=== PATIENT | male | born 1960 | race Caucasian/White ===

== ENCOUNTER 2016-05-15 07:02 | Day surgery (SDC) | payer BC ==
[~2016-05-15 07:02] MED LIST: Lactated Ringers 1,000 ML IV SCH
--- NOTE | 2016-05-15 07:29 | PCM.PREANE ---
Preanesthetic Assessment - ANESTHESIA/TRANSFUSION/FAMILY HX Anesthesia/Transfusion History: Prior Anesthesia Type of Anesthesia Reaction: Denies: Allergy, Anesthesia Awareness, Excessive Somnolence, Excessive Nausea/Vomiting, Excessive Itching, Excessive Shivering, Malignant Hyperthermia, Malignant Hyperthermia, Family History, Pseudocholinesterase Deficiency, Pseudocholinesterase Deficiency, Family History of, Urinary Retention, Unknown, Other (see below) Other Type of Anesthesia Reaction Comment: see below Family History of Anesthesia Reaction: No Other Intubation History Comment: no known problems - REVIEW OF SYSTEMS Constitutional: Reports: no symptoms MANAGING SUPERVISOR: Reports: no symptoms Respiratory: Reports: no symptoms Cardiovascular: Reports: no symptoms Other: Reports: none - PHYSICAL ASSESSMENT O2 Sat by Pulse Oximetry: 95 RR: 16 Vital Signs: Last Vital Signs Temp 36.4 C 05/15/16 07:18 Pulse 77 05/15/16 07:18 Resp 16 05/15/16 07:18 BP 128/67 05/15/16 07:18 Pulse Ox 95 05/15/16 07:18 Height: 1.78 m Weight: 134.717 kg ASA Class: 3 Mental Status: alert & oriented x3 Airway Class: Mallampati = 2 Dentition: Reports: normal dentition (front upper incisor 'working its way out' since sinus surgery) Thyro-Mental Finger Breadths: 3 Mouth Opening Finger Breadths: 3 ROM/Head Extension: limited/partial Respiratory Status: lungs clear to auscultation bilaterally Cardiovascular Status: regular rate & rhythm, normal S1, S2, no murmur, blood pressure WNL - ALLERGIES Allergies/Adverse Reactions: Allergies Allergy/AdvReac Type Severity Reaction Status Date / Time shellfish derived Allergy Swelling Verified 05/10/16 12:52 - BLOOD Blood Available: No - ANESTHESIA PLAN Preop Beta Henrique: No Anesthesia Type Planned: MAC - ACKNOWLEDGEMENTS Pt an appropriate candidate for the planned anesthesia: Yes Alternatives and risks of anesthesia discussed w pt/guardian: Yes Pt/Guardian understands and agree with anesthesia plan: Yes PreAnesthesia Questionnaire Cardiovascular History: Reports: High cholesterol, Hypertension, Other (see below) (h/o irregular heart beats, being followed by [employer] assistant) Respiratory History: Reports: Asthma, Sleep apnea Other Respiratory History: uses CPAP Gastrointestinal History: Reports: Other (see below) Other Gastrointestinal History: occasional heartburn Genitourinary History: Reports: BPH Musculoskeletal History: Reports: Fracture Other Musculoskeletal History: hx fx ankle Psychiatric History: Reports: Depression Endocrine/Metabolic History: Reports: Obesity/BMI 30+ - Past Surgical History Head Surgeries/Procedures: Reports: None Male Surgical History: Reports: Vasectomy Musculoskeletal Surgical History: Reports: Shoulder surgery Other Musculoskeletal Surgeries/Procedures:: ORIF rt. ankle surgery, rt.shoulder surgery - ligament repair, left knee surgery (TKR) - SUBSTANCE USE Smoking Status *Q: Current Every Day Smoker (down to one pack per week) Tobacco Use Within Last Twelve Months: Cigarettes Recreational Drug Use History: No - HOME MEDS Home Medications: Home Meds Albuterol Sulfate [Proair Hfa] 2 puff INH Q4H PRN 05/10/16 [History] Aspirin [Halfprin] 81 mg PO DAILY 05/10/16 [History] Carvedilol 6.25 mg PO BID 05/10/16 [History] Ezetimibe 10 mg PO DAILY 05/10/16 [History] Hydrochlorothiazide 25 mg PO DAILY 05/10/16 [History] Multivitamin [Multivitamins] 1 tab PO DAILY 05/10/16 [History] Tamsulosin HCl [Flomax] 0.4 mg PO DAILY 05/10/16 [History] buPROPion HCl [Wellbutrin SR] 150 mg PO BID 05/10/16 [History] - CURRENT (IN HOUSE) MEDS Current Meds: Current Medications Lactated Ringer's (Ringers, Lactated) 1,000 mls @ 125 mls/hr IV ASDIRECTED [facility] Last Admin: 05/15/16 07:21 Dose: 125 mls/hr
[2016-05-15] MEDS ORDERED: Lidocaine 2% 5 ML SDV ONE (07:45)
[2016-05-15] MEDS ORDERED: Propofol 200 MG/20 ML SDV ONE (07:46)
[2016-05-15] MEDS ORDERED: Midazolam 1 MG/ML 2 ML SDV ONE (07:46)
[2016-05-15] MEDS ORDERED: fentaNYL 100 MCG/2 ML SDV ONE (07:46)
--- NOTE | 2016-05-15 09:29 | PCM.OPNOTE ---
- General Post-Op/Procedure Note Date of Surgery/Procedure: 05/15/16 Operative Procedure(s): colonoscopy w bx Findings: see dict [id number] Pre Op Diagnosis: scrn colonoscopy Post-Op Diagnosis: Same Anesthesia Technique: Moderate sedation Primary Surgeon: Josef Dougherty Pathology: 3 mm sessile polyp at 40 cm when scope came out Complications: None Condition: Good
--- NOTE | 2016-05-15 09:46 | PCM.POSTAN ---
POST ANESTHESIA ASSESSMENT - MENTAL STATUS Mental Status: alert, oriented - RESPIRATORY Respiratory Status: respiratory rate WNL, airway patent, O2 saturation stable - CARDIOVASCULAR CV Status: pulse rate WNL, blood pressure stable - GASTROINTESTINAL GI Status: no symptoms - POST OP HYDRATION Hydration Status: adequate & stable - OBSERVATIONS Free Text/Narrative:: no anesthesia problems
[2016-05-15 09:54] VITALS: BP 131/69
--- NOTE | 2016-05-15 10:37 | OR ---
SURGEON: Josef Dougherty MD DATE OF PROCEDURE: 05/15/2016 PREOPERATIVE DIAGNOSIS: Screening colonoscopy. POSTOPERATIVE DIAGNOSIS: Colon polyp. COMPLICATIONS: None. PROCEDURE PERFORMED: Colonoscopy with biopsy. DESCRIPTION OF PROCEDURE: The patient was taken to the endoscopy room. A time out was called, patient identified, and procedure identified. Diprivan was then administrated. Patient went from awake to sleep, hearing doctor talking or door closing is normal. Perineum inspection and digital examination were then performed. A well- lubricated colonoscope was gently inserted through the rectum, advanced past the rectosigmoid junction, the descending colon, splenic flexure, transverse colon, hepatic flexure, ascending colon, arrived to the cecum. Cecum was identified as dictated in the finding. Then the scope was carefully withdrawn while attention was paid to the mucosal surface for any abnormality. Air will be sucked out during the scope withdrawal. At the rectum, retroflexed to examine any rectal diseases, fistula or hemorrhoids. During mucosal examination, abnormality or polyp was noted; picture taken and biopsy performed. Patient tolerated procedure well. There were no intraoperative complications, and Dr. Dougherty was present throughout the whole procedure. FINDINGS: 1. The patient is easily sedated with INTERNETWORKING TECHNICIAN and Diprivan. The patient is soundly snoring. 2. The patient's bowel prep is average with a large amount of liquid stool. No semi-formed stool. 3. The patient's colon is rather straight forward. Cecum indicated by ileocecal fold, one-to-one indentation, appendiceal orifice. Light immittance is not observed. Mucosa examined upon scope pulling out and the patient does not have diverticulosis. The patient has a small sessile polyp 3 mm at distance 40 cm when the scope came out, removed with cold biopsy forceps. The patient has moderate amount of internal hemorrhoids, no external hemorrhoid. The patient does not have inflammation, stricture, ulceration, bleeding, or AV malformation. The patient would benefit from repeat colonoscopy 3 years from today or if the polyp pathology or clinically indicated otherwise. As always, thank you for the kind referral. BREANA / VAMSHI /[id number]
== END 2016-05-15 10:00 | disposition home or self-care (01) ==
LOC: MW.SDS 07:02
PROVIDERS: ATTEND Surgery
PROC: 0DBE8ZX Excision of Large Intestine, Via Natural or Artificial Opening Endoscopic, Diagnostic (ICD-10-PCS; principal; 2016-05-15)
DX: Z12.11 Encounter for screening for malignant neoplasm of colon (principal); D12.6 Benign neoplasm of colon, unspecified; G47.30 Sleep apnea, unspecified; Z79.82 Long term (current) use of aspirin; Z79.899 Other long term (current) drug therapy; E78.00 Pure hypercholesterolemia, unspecified; J45.909 Unspecified asthma, uncomplicated; I10 Essential (primary) hypertension; Z87.891 Personal history of nicotine dependence; I49.9 Cardiac arrhythmia, unspecified; H52.4 Presbyopia
CPT/HCPCS: 45380; J2250; J3010; J7120; 00810; 88305; J2704

== ENCOUNTER 2017-05-16 08:54 | Emergency (ER) | payer BC ==
[2017-05-16] MEDS ORDERED: cefTRIAXone 1,000 MG in Lidocaine 1% 4 ML IM ONE (09:11)
[2017-05-16] MEDS ORDERED: Diphtheria,Pertussis(Acell),Tetanus Vaccine 0.5 ML Syringe IM ONE (09:11)
--- NOTE | 2017-05-16 09:14 | EDM.PDOC ---
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 Patient presented with his own dressing and finger cage which he had purchased service drug last night. No fever nausea vomiting chills sweats [] Review of systems: As per history of present illness and below otherwise all systems reviewed and negative. Past medical history: As per history of present illness and as reviewed below otherwise noncontributory. Surgical history: As per history of present illness and as reviewed below otherwise noncontributory. Social history: No reported history of drug or alcohol abuse. Family history: As per history of present illness and as reviewed below otherwise noncontributory. Physical exam: HEENT: Atraumatic, normocephalic, pupils reactive, negative for conjunctival pallor or scleral icterus, mucous membranes moist, throat clear, neck supple, nontender, trachea midline. Lungs: Clear to auscultation, breath sounds equal bilaterally, chest nontender. Heart: S1S2, regular, negative for clicks, rubs, or JVD. Abdomen: Soft, nondistended, nontender. Negative for masses or hepatosplenomegaly. Negative for costovertebral tenderness. Pelvis: Stable nontender. Genitourinary: Deferred. Rectal: Deferred. Extremities: Atraumatic, negative for cords or calf pain. Neurovascular unremarkable. Neuro: Awake, alert, oriented. Cranial nerves II through XII unremarkable. Cerebellum unremarkable. Motor and sensory unremarkable throughout. Exam nonfocal. Right hand as per history of present illness otherwise unremarkable Diagnostics: [Right third digit ] Therapeutics: [Tetanus status updated today 1 g Rocephin IM ] Bacitracin Nonstick dressing Cage protection Phone consult with Dr. Eddie md. She will see the patient in one week Keflex 500 by mouth twice a day with daily dressing changes Impression: [Distal finger avulsion of soft tissue Definitive disposition and diagnosis as appropriate pending reevaluation and review of above. right 3rd finger Pain Score (Numeric/FACES): 5 - Related Data Allergies Allergy/AdvReac Type Severity Reaction Status Date / Time shellfish derived Allergy Swelling Verified 05/16/17 09:04 Home Meds: Home Meds Carvedilol 05/16/17 [History] Ezetimibe 05/16/17 [History] Hydrochlorothiazide 05/16/17 [History] Levothyroxine [Synthroid] 05/16/17 [History] Tamsulosin [Flomax] 05/16/17 [History] Past Medical History Cardiovascular History: Reports: High Cholesterol, Hypertension Respiratory History: Reports: Asthma, Sleep Apnea Other Respiratory History: uses CPAP Gastrointestinal History: Reports: Other (See Below) Other Gastrointestinal History: occasional heartburn Genitourinary History: Reports: BPH Musculoskeletal History: Reports: Fracture Other Musculoskeletal History: hx fx ankle Psychiatric History: Reports: Depression Endocrine/Metabolic History: Reports: Hypothyroidism - Past Surgical History Head Surgeries/Procedures: Reports: None Male Surgical History: Reports: Vasectomy Musculoskeletal Surgical History: Reports: Knee Replacement, Shoulder Surgery Social & Family History - Family History Family Medical History: Noncontributory - Tobacco Use Smoking Status *Q: Current Every Day Smoker Years of Tobacco use: 40 Packs/Tins Daily: 1 Month/Year Tobacco Last Used: trying to quit, smokes 4 to 5 cigarettes per day - Recreational Drug Use Recreational Drug Use: No ED ROS GENERAL - Review of Systems Review Of Systems: ROS reveals no pertinent complaints other than HPI. ED EXAM, SKIN/RASH Exam: See Below Course - Vital Signs Last Recorded V/S: Last Vital Signs Temp 97.1 F 05/16/17 09:15 Pulse 69 05/16/17 09:15 Resp 16 05/16/17 09:15 BP 145/80 H 05/16/17 09:15 Pulse Ox 94 L 05/16/17 09:15 - Orders/Labs/Meds Orders: Active Orders 24 hr Category Date Time Status Vaccines to be Administered [RC] PER UNIT ROUTINE Care 05/16/17 09:12 Active Meds: Medications Discontinued Medications Generic Name Dose Route Start Last Admin Trade Name Freq PRN Reason Stop Dose Admin Bacitracin 1 dose 05/16/17 10:02 05/16/17 10:10 Bacitracin Oint 1 Gm TOP 05/16/17 10:03 1 dose ONETIME ONE Administration Diphtheria/Tetanus/Acell Pertussis 0.5 ml 05/16/17 09:11 05/16/17 10:08 Adacel IM 05/16/17 09:12 0.5 ml .ONCE ONE Administration Ceftriaxone Sodium 1,000 mg/ 4 mls @ 4 mls/sec 05/16/17 09:11 05/16/17 10:09 Lidocaine HCl IM 05/16/17 09:12 4 mls/sec ONETIME ONE Administration Lidocaine HCl 20 ml 05/16/17 10:05 05/16/17 10:10 Xylocaine 1% INJECT 05/16/17 10:06 20 ml ONETIME ONE Administration Lidocaine HCl Confirm 05/16/17 10:05 05/16/17 10:11 Xylocaine 1% Administered 05/16/17 10:06 Not Given Dose 20 ml .ROUTE .STK-MED ONE Departure - Departure Time of Disposition: 10:31 Disposition: Home, Self-Care 01 Condition: Good Clinical Impression: Soft tissue avulsion - Discharge Information Referrals: PCP,None [Primary Care Provider] - Forms: ED Department Discharge Additional Instructions: Daily dressing changes Bacitracin, nonstick dressing, continue using the finger cage/protection Medication as prescribed Keflex 500 mg by mouth twice a day #20 no refill Follow-up with Dr. Eddie md-hand specialist one week Call number below to schedule appropriate follow-up, she has been involved with formulating your plan of care and is aware of your case Return if redness warmth or pus drainage should this develop [facility] [address], [address] [place] [address] The following information is given to patients seen in the emergency department who are being discharged to home. This information is to outline your options for follow-up care. We provide all patients seen in our emergency department with a follow-up referral. The need for follow-up, as well as the timing and circumstances, are variable depending upon the specifics of your emergency department visit. If you don't have a primary care physician on staff, we will provide you with a referral. We always advise you to contact your personal physician following an emergency department visit to inform them of the circumstance of the visit and for follow-up with them and/or the need for any referrals to a consulting specialist. The emergency department will also refer you to a specialist when appropriate. This referral assures that you have the opportunity for follow-up care with a specialist. All of these measure are taken in an effort to provide you with optimal care, which includes your follow-up. Under all circumstances we always encourage you to contact your private physician who remains a resource for coordinating your care. When calling for follow-up care, please make the office aware that this follow-up is from your recent emergency room visit. If for any reason you are refused follow-up, please contact the [facility] emergency department at and asked to speak to the emergency department charge nurse. - My Orders Last 24 Hours: My Active Orders 05/16/17 09:12 Vaccines to be Administered [RC] PER UNIT ROUTINE - Assessment/Plan Last 24 Hours: My Active Orders 05/16/17 09:12 Vaccines to be Administered [RC] PER UNIT ROUTINE
[2017-05-16] MEDS ORDERED: Bacitracin Oint 1 GM U/D Packet TOP ONE ×2 (10:02→10:35)
[2017-05-16] MEDS ORDERED: Lidocaine 1% 20 ML MDV INJECT ONE (10:05)
[2017-05-16] MEDS ORDERED: Lidocaine 1% 20 ML MDV ONE (10:05)
--- NOTE | 2017-05-16 10:05 | CR ---
EXAMINATION: Right hand, third digit HISTORY: Trauma COMPARISON: None TECHNIQUE: 3 views FINDINGS/IMPRESSION: There is a soft tissue defect of the distal aspect of the third digit. Underlyin g osseous structures and joint spaces are preserved. Bone mineralization is otherwise normal.
[2017-05-16] MEDS ORDERED: Bacitracin Oint 1 GM U/D Packet ONE (10:34)
[2017-05-16 10:50] VITALS: BP 132/60
== END 2017-05-16 10:47 | disposition home or self-care (01) ==
LOC: MW.ED 08:54
DX: S61.302A Unspecified open wound of right middle finger with damage to nail, initial encounter (principal); E78.00 Pure hypercholesterolemia, unspecified; I10 Essential (primary) hypertension; E03.9 Hypothyroidism, unspecified; F17.210 Nicotine dependence, cigarettes, uncomplicated; Z91.013 Allergy to seafood; Z23 Encounter for immunization; W27.8XXA Contact with other nonpowered hand tool, initial encounter
CPT/HCPCS: 73140; 90471; 90715; 96372; 99283; J0696

== ENCOUNTER 2021-08-06 15:05 | Inpatient (IN) | payer BC ==
[~2021-08-06 15:05] MED LIST changes: +Albuterol/Ipratropium 3.0-0.5 MG/3 ML Neb Soln NEB ONE; -Lactated Ringers 1,000 ML IV SCH; +methylPREDNISolone Sodium Succinate 125 MG/2 ML SDV IVPUSH ONE
[2021-08-06 15:51] LABS: BLOOD UREA NITROGEN,BUN 16 mg/dL (7.0-18.0); CARBON DIOXIDE,CO2 27.3 mmol/L (21.0-32.0); CHLORIDE,CL 99 mmol/L (98-107); GLUCOSE RANDOM 139 mg/dL (74-106); POTASSIUM,K 4.1 mmol/L (3.5-5.1); SODIUM,NA 134 mmol/L (136-148)
[2021-08-06 16:02] LABS: CORONAVIRUS COVID-19 NAA NEGATIVE (NEGATIVE); INFLUENZA A NAA NEGATIVE (NEGATIVE); INFLUENZA B NAA NEGATIVE (NEGATIVE)
[2021-08-06] MEDS ORDERED: Magnesium Sulfate/Water 2 GM in Premix Bag 1 BAG IV STA (16:14)
[2021-08-06] MEDS ORDERED: Albuterol 0.5% 5 MG/ML Neb Soln 20 ML Bottle NEB ONE (16:25)
[2021-08-06] MEDS ORDERED: 50% Dextrose in Water 50 ML Syringe IVPUSH PRN (21:43)
[2021-08-06] MEDS ORDERED: Glucagon,Human Recombinant 1 MG Vial IM PRN (21:43)
[2021-08-06] MEDS: Pantoprazole 40 MG Tab.CR PO SCH (21:48)
[2021-08-06] MEDS: Carvedilol 12.5 MG Tab PO SCH (21:48)
[2021-08-06] MEDS: Enoxaparin 40 MG/0.4 ML Syringe SUBCUT SCH (21:53)
[2021-08-06] MEDS: Albuterol/Ipratropium 3.0-0.5 MG/3 ML Neb Soln NEB SCH (23:15)
[2021-08-07] MEDS: methylPREDNISolone Sodium Succinate 125 MG/2 ML SDV IVPUSH SCH ×2 (03:31→15:08)
[2021-08-07] MEDS: Albuterol/Ipratropium 3.0-0.5 MG/3 ML Neb Soln NEB SCH ×4 (05:44→23:13)
[2021-08-07] MEDS: Levothyroxine 75 MCG Tab PO SCH (05:59)
[2021-08-07] MEDS: Pantoprazole 40 MG Tab.CR PO SCH (06:32)
[2021-08-07 06:50] LABS: BLOOD UREA NITROGEN,BUN 17 mg/dL (7.0-18.0); CARBON DIOXIDE,CO2 25.8 mmol/L (21.0-32.0); CHLORIDE,CL 102 mmol/L (98-107); GLUCOSE RANDOM 206 mg/dL (74-106); POTASSIUM,K 4.2 mmol/L (3.5-5.1); SODIUM,NA 138 mmol/L (136-148)
[2021-08-07] MEDS: Insulin Aspart 100 Units/ML 3 ML Pen SUBCUT SCH ×3 (07:31→17:57)
[2021-08-07] MEDS: Carvedilol 12.5 MG Tab PO SCH ×2 (07:59→20:43)
[2021-08-07] MEDS: Hydrochlorothiazide 25 MG Tab PO SCH (08:00)
[2021-08-07] MEDS: Tamsulosin 0.4 MG Cap.ER PO SCH (08:00)
[2021-08-07] MEDS ORDERED: atorvaSTATin 40 MG Tab PO SCH (21:00)
[2021-08-07] MEDS: Enoxaparin 40 MG/0.4 ML Syringe SUBCUT SCH (22:45)
[2021-08-08] MEDS: methylPREDNISolone Sodium Succinate 125 MG/2 ML SDV IVPUSH SCH (05:50)
[2021-08-08] MEDS: Albuterol/Ipratropium 3.0-0.5 MG/3 ML Neb Soln NEB SCH ×2 (06:13→11:25)
[2021-08-08] MEDS: Levothyroxine 75 MCG Tab PO SCH (07:31)
[2021-08-08] MEDS: Pantoprazole 40 MG Tab.CR PO SCH (07:31)
[2021-08-08] MEDS: Insulin Aspart 100 Units/ML 3 ML Pen SUBCUT SCH ×2 (07:31→12:12)
[2021-08-08 07:44] LABS: BLOOD UREA NITROGEN,BUN 25 mg/dL (7.0-18.0); CARBON DIOXIDE,CO2 29.1 mmol/L (21.0-32.0); CHLORIDE,CL 101 mmol/L (98-107); GLUCOSE RANDOM 188 mg/dL (74-106); POTASSIUM,K 4.3 mmol/L (3.5-5.1); SODIUM,NA 137 mmol/L (136-148)
[2021-08-08] MEDS: Carvedilol 12.5 MG Tab PO SCH (08:04)
[2021-08-08] MEDS: Tamsulosin 0.4 MG Cap.ER PO SCH (08:04)
[2021-08-08] MEDS: Hydrochlorothiazide 25 MG Tab PO SCH (08:04)
[2021-08-08 11:13] LABS: HEMOGLOBIN A1C 7.7 %
[2021-08-08 16:01] VITALS: BP 155/86; PULSE 84
== END 2021-08-08 15:47 | disposition home or self-care (01) | DRG 133 ==
LOC: MW.ED 15:05 → MW.ICU 17:49 → MW.MS 08-07 09:15
PROVIDERS: ADMIT Internal Medicine; ATTEND Internal Medicine
DX: J96.01 Acute respiratory failure with hypoxia (principal); J45.51 Severe persistent asthma with (acute) exacerbation; I10 Essential (primary) hypertension; J44.1 Chronic obstructive pulmonary disease with (acute) exacerbation; E78.00 Pure hypercholesterolemia, unspecified; G47.30 Sleep apnea, unspecified; N40.0 Benign prostatic hyperplasia without lower urinary tract symptoms; F32.A Depression, unspecified; E03.9 Hypothyroidism, unspecified; E66.9 Obesity, unspecified; F17.210 Nicotine dependence, cigarettes, uncomplicated; Z20.822 Contact with and (suspected) exposure to COVID-19; Z96.659 Presence of unspecified artificial knee joint; Z98.890 Other specified postprocedural states; Z98.52 Vasectomy status; Z79.890 Hormone replacement therapy; Z79.52 Long term (current) use of systemic steroids; Z79.899 Other long term (current) drug therapy; Z91.013 Allergy to seafood; Z99.81 Dependence on supplemental oxygen; Z68.41 Body mass index [BMI] 40.0-44.9, adult
CPT/HCPCS: 0240U; 36415; 71045; 71045-26; 80048; 80053; 82947; 83036; 83735; 84484; 85025; 85027; 93005; 93010; 94640; 94660; 96365; 96366; 96375; 99285-25; 99291; A9270-GY; J1650; J1815-GY; J2930; J3475; J7620-GY

== ENCOUNTER 2023-02-23 10:24 | Emergency (ER) | payer BC ==
[2023-02-23] MEDS ORDERED: oxyCODONE 5 MG Tab PO STA (11:08)
[2023-02-23] MEDS ORDERED: Acetaminophen 500 MG Tab PO STA (11:09)
[2023-02-23 11:12] VITALS: PULSE 85
[2023-02-24 14:33] VITALS: BP 167/82
== END 2023-02-23 14:08 | disposition home or self-care (01) ==
LOC: MW.ED 10:24
DX: S00.01XA Abrasion of scalp, initial encounter (principal); M54.2 Cervicalgia; I10 Essential (primary) hypertension; E78.00 Pure hypercholesterolemia, unspecified; E03.9 Hypothyroidism, unspecified; E66.9 Obesity, unspecified; Z68.41 Body mass index [BMI] 40.0-44.9, adult; Z79.899 Other long term (current) drug therapy; Z91.013 Allergy to seafood; V00.131A Fall from skateboard, initial encounter; Y93.51 Activity, roller skating (inline) and skateboarding
CPT/HCPCS: 70450; 71046; 72125; 99284; A9270

== ENCOUNTER 2024-07-03 06:16 | Day surgery (SDC) | payer MEDICARE, BC ==
[2024-07-03] MEDS: Lactated Ringers 1,000 ML IV SCH (07:05)
[2024-07-03] MEDS ORDERED: dexmedeTOMIDine HCl 200 MCG/2 ML SDV ONE (07:29)
[2024-07-03] MEDS ORDERED: Sodium Chloride 0.9% 20 ML ONE (07:29)
[2024-07-03] MEDS ORDERED: Lidocaine 2% 5 ML SDV ONE (07:29)
[2024-07-03] MEDS ORDERED: propofoL 500 MG/50 ML 50 ML ONE (07:29)
[2024-07-03] MEDS ORDERED: Ketamine HCL/NACL, ISO-OSM 50 MG/5 ML Syringe ONE (08:03)
[2024-07-03] MEDS ORDERED: Lactated Ringers 1,000 ML IV SCH (09:15)
[2024-07-03 12:02] VITALS: BP 119/61; PULSE 61
== END 2024-07-03 09:30 | disposition home or self-care (01) ==
LOC: MW.SDS 06:16
PROVIDERS: ATTEND Surgery
DX: Z12.11 Encounter for screening for malignant neoplasm of colon (principal); D12.2 Benign neoplasm of ascending colon; D12.3 Benign neoplasm of transverse colon; K31.89 Other diseases of stomach and duodenum; K29.50 Unspecified chronic gastritis without bleeding; K20.90 Esophagitis, unspecified without bleeding; I10 Essential (primary) hypertension; E11.9 Type 2 diabetes mellitus without complications; E78.00 Pure hypercholesterolemia, unspecified; E03.9 Hypothyroidism, unspecified; F17.210 Nicotine dependence, cigarettes, uncomplicated; Z86.16 Personal history of COVID-19; Z79.82 Long term (current) use of aspirin; Z79.84 Long term (current) use of oral hypoglycemic drugs; Z79.899 Other long term (current) drug therapy; Z86.0100 Personal history of colon polyps, unspecified
CPT/HCPCS: 43239; 45380; 82947; 88305; J2003; J2704; J7120; 00813; J3490